=== PATIENT | male | born 1985 | race Caucasian/White ===

== ENCOUNTER 2017-01-09 21:24 | Emergency (ER) | payer SELFPAY ==
[2017-01-09 21:53] VITALS: BP 122/81; RESP 20; TEMP 98.2; O2SAT 100
--- NOTE | 2017-01-09 23:20 | C.PDOC ---
History Of Present Illness Patient is a 31 year old male who presents to the ER with a complaint of lower back pain that worsens when breathing and swelling to the buttocks for the past 5 days. Patient denies any PMHx, medications, injury or trauma. Time Seen by Provider: 01/09/17 22:04 Chief Complaint (Nursing): Back Pain History Per: Patient History/Exam Limitations: language barrier Onset/Duration Of Symptoms: Days (5) Current Symptoms Are (Timing): Still Present Quality Of Discomfort: Unable To Describe Previous Symptoms: Back Pain (Lower) Associated Symptoms: None Exacerbating Factor(s): Other (Breathing) Recent travel outside of the [place]: No Past Medical History Reviewed: Historical Data, Nursing Documentation, Vital Signs Vital Signs: Last Vital Signs Temp 98.2 F 01/09/17 21:49 Pulse 64 01/09/17 23:28 Resp 20 01/09/17 23:28 BP 122/81 01/09/17 21:49 Pulse Ox 100 01/09/17 23:37 - Medical History PMH: No Chronic Diseases Surgical History: No Surg Hx Family History: States: Unknown Family Hx - Social History Hx Alcohol Use: No Hx Substance Use: No - Immunization History Hx Tetanus Toxoid Vaccination: No Hx Influenza Vaccination: No Hx Pneumococcal Vaccination: No Physical Exam - Physical Exam Appears: Well, Non-toxic Skin: Normal Color, Warm, Dry Head: Atraumatic, Normacephalic Eye(s): bilateral: Normal Inspection, PERRL Oral Mucosa: Moist Gastrointestinal/Abdominal: Normal Exam, Soft, No Tenderness Rectal: Other (Small skin tag, non-swelling, to 6'o clock position.) Back: No CVA Tenderness, No Vertebral Tenderness, No Paraspinal Tenderness Neurological/Psych: Oriented x3, Normal Speech, Normal Cognition ED Course And Treatment O2 Sat by Pulse Oximetry: 100 (Room air) Pulse Ox Interpretation: Normal Progress Note: Patient advised to follow up at clinic. If pain worsens patient advised to return to the ER. Disposition Counseled Patient/Family Regarding: Diagnosis - Disposition Disposition: HOME/ ROUTINE Disposition Time: 23:14 Condition: STABLE Additional Instructions: Please follow up in clinic High fiber diet Return to ER if worse Return to ER if worse Prescriptions: Docusate Sodium [Colace] 100 mg PO TID #20 capsule Ibuprofen [Motrin] 600 mg PO Q6H #30 tab Instructions: Hemorrhoids (ED), Back Pain (ED) - Clinical Impression Clinical Impression: Low back pain, External hemorrhoid - Scribe Statement The provider has reviewed the documentation as recorded by the Bharathibjosué Briones All medical record entries made by the Bharathibjosué were at my direction and personally dictated by me. I have reviewed the chart and agree that the record accurately reflects my personal performance of the history, physical exam, medical decision making, and the department course for this patient. I have also personally directed, reviewed, and agree with the discharge instructions and disposition.
[2017-01-09 23:29] VITALS: PULSE 64
== END 2017-01-09 23:28 | disposition home or self-care (01) ==
LOC: C.ER 21:24
DX: M54.5 Low back pain (principal); K64.4 Residual hemorrhoidal skin tags